=== PATIENT | male | born 1970 | race Caucasian/White ===

== ENCOUNTER 2019-04-21 13:11 | Day surgery (SDC) | payer OTHER, SELFPAY ==
[2019-04-21] VITALS (8 sets, daily range): BP systolic 109–136; BP diastolic 73–87; PULSE 59–77; RESP 8–16; TEMP 36.6–36.8; O2SAT 95–100; BMI 27.2
[2019-04-21] MEDS: SODIUM CHLORIDE 0.9% 1,000 ML 200 ML IV (13:41)
--- NOTE | 2019-04-21 14:31 | P.HP_ITS ---
History of Present Illness History of Present Illness Date Patient Seen: 04/21/19 Time Patient Seen: 14:31 Chief complaint: [id number] Narrative: This is a 48 year old man with family history of advanced colon polyps in his sister and his father. He denies any personal history of melena, hematochezia, unexplained abdominal pain, or unexplained weight loss. He says he is otherwise healthy without any health concerns. ROS Thirteen system review is otherwise negative other than as mentioned below and in HPI. PE: GENERAL: Well groomed and cooperative. Appears stated age. Answers questions promptly and appropriately. Vital signs noted. HENT: Normocephalic, atraumatic. Hearing intact. Oral mucosa is pink and moist. EYES: Conjunctiva pink, sclera white, no periorbital swelling. CARDIOVASCULAR: Regular rate. No pedal edema. RESPIRATORY: Non-tachypneic, breathing comfortably on room air. GASTROINTESTINAL: Abdomen soft and non-distended GENITALURINARY: No flank tenderness. MUSCULOSKELETAL: Equal tone and mass bilaterally. SKIN: Warm, dry, soft, appropriate color for ethnicity. No other lesions, rashes, or wounds. NEURO: Alert and Oriented X 3. No gross sensory deficits, or cognitive issues. PSYCH: Appropriate affect and mood. Patient History Medical History Former smoker (Acute) Pre-diabetes (Acute) Surgical History S/P LASIK surgery of both eyes (Acute) [place] teeth extracted (Acute) Family & Social History Social History: household members spouse Tobacco & Substance use: Tobacco type cigarettes Smoking Status Former smoker alcohol intake current alcohol intake frequency holiday/special occasion Substance Use Type does not use Meds Home Medications and Allergies Home Medications Medication Instructions Recorded Confirmed Type cholecalciferol (vitamin D3) 5,000 unit PO DAILY 04/21/19 04/21/19 History [Vitamin D3] multivitamin with minerals [Men's 1 tab PO DAILY 04/21/19 04/21/19 History One Daily] omega 5-[id number]-fish oil [Fish Oil] 1 cap PO DAILY 04/21/19 04/21/19 History Allergies Allergy/AdvReac Type Severity Reaction Status Date / Time No Known Drug Allergies Allergy Verified 04/21/19 13:33 Exam Vital Signs (past 8 hours): - 04/21/19 13:42 Temperature 98.1 F Pulse Rate 77 Respiratory Rate 16 Blood Pressure 136/87 Pulse Oximetry 100 Oxygen Delivery Method Room Air Assessment & Plan Assessment and plan (1) Encounter for screening colonoscopy for [id number] patient: Current visit: Yes Status: Acute Assessment & Plan narrative: Risks and benefits of screening colonoscopy and polypectomy were discussed with the patient including risk of bleeding, perforation, need for additional procedures. The patient desires to proceed with his colonoscopy procedure. Time Spent With Patient Time with patient: 15-24 minutes Quality VTE Deep Vein Thrombosis/Pulmonary Embolism Present on Admission: No
[2019-04-21] MEDS: MIDAZOLAM 5 MG/5 ML VIAL IV (14:36)
[2019-04-21] MEDS: fentaNYL 250 MCG/5 ML INJ IV (14:36)
--- NOTE | 2019-04-21 14:53 | PM.OP.ENDO ---
Operative Date/Time/Diagnoses Date of procedure: 04/21/19 Time of procedure: 14:53 Pre-op diagnosis: High risk for colon cancer due to family history Post-op diagnosis: same (In addition, the patient has diverticulosis through the left and right colon) Procedure & Clinicians Study performed: Screening colonoscopy Same procedure as scheduled: Yes Indications: Family history of advanced colon polyps Surgeon: Yasemin Driver Procedure Notes SCOAP/Timeout: Performed Procedure in detail: The patient was brought to the room and placed in left lateral decubitus position with all bony prominences padded. A time-out was performed and then the patient was given procedural sedation starting with [4] mg of Versed and [100] mcg of fentanyl. Total of 6 mg of Versed and 150 micro g of fentanyl were given for the entire procedure. Vitals were monitored throughout the procedure and remained stable. Once adequately sedated the procedure was begun. A rectal exam was performed revealing [no abnormalities]. The colonoscope was then introduced to the rectum and advanced to the cecum in the usual fashion. []The cecum was identified by the appendiceal orifice, the mucosal tri-fold, and the ileocecal valve. The scope was then retracted while rotating side to side and examining each mucosal fold. [Low-grade diverticular were seen in the right colon, and large diverticular seen in the left colon. No polyps or masses were seen.] At the conclusion of the procedure retroflexion was performed and [small grade 1-2 internal hemorrhoids without stigmata of bleeding were seen]. The scope was then withdrawn from the rectum the procedure was concluded. The patient tolerated the procedure well and was transferred to the PACU in stable condition. Scope withdrawal time: 8 Sedation minutes: 20 Findings: diverticulosis Specimen(s): none sent Complications: none Impression: Moderate diverticulosis Post-procedure Recommendations: Colonscopy in 5 years (Due to family history) Follow up: as needed Disposition: PACU
--- NOTE | 2019-04-21 17:13 | SUR.PHASEII ---
Discharged patient home in stable condition with . All belongings returned to patient. Home via private vehicle.
== END 2019-04-21 17:14 | disposition home or self-care (01) ==
PROVIDERS: PCP Family Medicine; Visit Provider Surgery
PROC: 0DJD8ZZ Inspection of Lower Intestinal Tract, Via Natural or Artificial Opening Endoscopic (ICD-10-PCS; CPT 45378; principal; 2019-04-21 14:30)
DX: Z12.11 Encounter for screening for malignant neoplasm of colon (principal); K57.30 Diverticulosis of large intestine without perforation or abscess without bleeding; K64.0 First degree hemorrhoids; R73.03 Prediabetes; Z83.71 Family history of colonic polyps
CPT/HCPCS: 45378; 99152; J2250; J3010